=== PATIENT | male | born 1955 | race Caucasian/White ===

== ENCOUNTER → 2021-09-30 | Day surgery (SDC) | payer BC ==
[2021-09-27 08:48] LABS: BASOPHILS # (AUTO) 0.1 (0.0-0.1); BASOPHILS % 0.6 % (0.0-1.0); EOSINOPHILS # (AUTO) 0.1 (0.0-0.4); EOSINOPHILS % 0.9 % (0.0-6.0); HEMATOCRIT 46.3 % (38.2-49.6); LYMPHOCYTES # (AUTO) 1.3 (1.0-3.2); LYMPHOCYTES % 15.5 % (18.0-39.1); MEAN CORPUSCULAR HEMOGLOBIN 31.4 pg (28-32); MEAN CORPUSCULAR HGB CONC 32.4 g/dL (31-35); MEAN CORPUSCULAR VOLUME 97.1 fL (81-99); MONOCYTES # (AUTO) 0.4 (0.2-0.8); MONOCYTES % 4.7 % (4.4-11.3); NEUTROPHILS # (AUTO) 6.4 (2.1-6.9); NEUTROPHILS % 78.1 % (38.7-80.0); PLATELET COUNT 198 x10e3/uL (140-360); RED BLOOD COUNT 4.77 x10e6/uL (4.3-5.7); RED CELL DISTRIBUTION WIDTH 12.2 % (11.7-14.4)
[~2021-09-30] MED LIST: FENTANYL CITRATE/PF 100MCG/2 ML INJ ONE; GINKGO BILOBA125 MG PO; GLUCAGON FOR INJ 1 MG VIAL ONE; HYOSCYAMINE SULFATE 0.5 MG/ML INJ ONE; LIDOCAINE HCL 2% LOCAL INJ 5 ML SDV VIAL INJ ONE; LOSARTAN POTASS25 MG PO; MAGNESIUM PO; PROPOFOL IV EMULSION 10 MG/ML 20 ML VIAL ONE; SELENIUM200 MC2 PO; VITAMIN B-122000 MC1 PO; VITAMIN C1000 MG PO
[2021-09-30 08:45] VITALS: BP 114/79
== END | disposition home or self-care (01) ==
LOC: OR 06:25
PROVIDERS: ATTEND Internal Medicine Gastroenterology
DX: Z12.11 Encounter for screening for malignant neoplasm of colon (principal); D12.2 Benign neoplasm of ascending colon; D12.8 Benign neoplasm of rectum; K57.30 Diverticulosis of large intestine without perforation or abscess without bleeding; K64.8 Other hemorrhoids; I10 Essential (primary) hypertension; K21.9 Gastro-esophageal reflux disease without esophagitis; R10.13 Epigastric pain; R19.5 Other fecal abnormalities; F17.210 Nicotine dependence, cigarettes, uncomplicated; Z01.810 Encounter for preprocedural cardiovascular examination; Z01.812 Encounter for preprocedural laboratory examination; Z20.822 Contact with and (suspected) exposure to COVID-19; Z79.899 Other long term (current) drug therapy; Z68.25 Body mass index [BMI] 25.0-25.9, adult; Z98.1 Arthrodesis status; Z80.0 Family history of malignant neoplasm of digestive organs
CPT/HCPCS: 36415; 45380; 45385; 85025; 93005; J1610; J1980; J2001; J2704; J3010; U0002; 45378